=== PATIENT | male | born 1945 | race Caucasian/White ===

== ENCOUNTER 2018-09-13 02:03 | Day surgery (SDC) | payer MEDICARE, OTHER ==
--- NOTE | 2018-09-01 08:59 | EKG ---
FACILITY: [facility] - [place] PATIENT NAME: KIRSTEN WONG : [id number] MR: [id number] V: [id number] EXAM DATE: ORDERING PHYSICIAN: DEJAN ESQUEDA TECHNOLOGIST: NGUYỄN Starkey Reason : PREOP-WRIST Blood Pressure : / mmHG Vent. Rate : 055 BPM Atrial Rate : 055 BPM P-R Int : 190 ms QRS Dur : 086 ms QT Int : 444 ms P-R-T Axes : 037 016 032 degrees QTc Int : 424 ms Sinus bradycardia Otherwise normal ECG When compared with ECG of 05-FEB-2017 21:40, No significant change was found Confirmed by EDWIN JANE ([id number]) on 09/01/2018 12:42:28 PM Referred By: DHEERAJ Confirmed By:EDWIN JANE
[2018-09-13] VITALS (11 sets, daily range): BP systolic 110–151; BP diastolic 80–110
[~2018-09-13] VITALS: Ht 182.9 cm; Wt 113.4 kg
[~2018-09-13 02:03] MED LIST: ACYC-50 PO; ALBU8.5H IH; AMLO-125 PO; ASPI-1441 PO; ATOR20TA22 PO; CEFU500T10 PO; CELE-1 PO; CIT20 PO; CITA-145 PO; CITA-155 PO; DEXL60CA6 PO; ENO30I SC; ENO30I SQ; ESOM40CA42 PO; FLUT16SP19 NS; HYDR2TAB41 PO; MON10 PO; MULT-820 PO; OMEG-11 PO; OMEP-125 PO; OXY10 PO; OXYC-865 PO; PER PO; SILD25TA6 PO; VALS1TAB67 PO; VALS1TAB76 PO; WAR5 PO; ZOLP12.545 PO; [UNRECOGNIZED DRUG - CODE] PO; [UNRECOGNIZED DRUG - CODE] PO
[2018-09-13] MEDS ORDERED: MIDAZOLAM 2 MG/2 ML VIAL IVP PRN (06:00)
[2018-09-13] MEDS ORDERED: ceFAZolin(*) 2GM/D5W 50ML 50 ML IVPB ONE (06:00)
[2018-09-13] MEDS ORDERED: NORMOSOL R SOLN(*) 1000 ML BAG 1,000 ML IV PRN (06:00)
[2018-09-13] MEDS ORDERED: LIDOCAINE/SOD BICARB 8.4% SYR ID ONE (06:00)
[2018-09-13] MEDS ORDERED: CELECOXIB 200 MG CAP PO ONE (06:00)
[2018-09-13] MEDS ORDERED: ROPIVACAINE 0.2% 20 ML VIAL ONE (06:48)
[2018-09-13] MEDS ORDERED: PROPOFOL EMUL(*) 10MG/ML 20 ML 20 ML ONE (07:25)
[2018-09-13] MEDS ORDERED: DEXAMETHASONE SOD 4 MG/ML VIAL ONE ×2 (07:25→07:54)
[2018-09-13] MEDS ORDERED: fentaNYL CITR 100 MCG/2 ML AMP ONE (07:25)
[2018-09-13] MEDS ORDERED: LIDOCAINE MPF 1% 5 ML VIAL ONE (07:25)
[2018-09-13] MEDS ORDERED: ONDANSETRON 4 MG/2 ML VIAL ONE (07:25)
[2018-09-13] MEDS ORDERED: KETAMINE HCL-NS 50 MG/5 ML SYR ONE (07:26)
[2018-09-13] MEDS ORDERED: GLYCOPYRROLATE 0.2MG/ML 1 ML INJ ONE (08:00)
[2018-09-13] MEDS ORDERED: HYDROmorphone HCL 2 MG/ML SDV ONE (09:04)
[2018-09-13] MEDS ORDERED: HYDR-653 PO (09:42)
--- NOTE | 2018-09-13 10:04 | OPERATIVE REPORT 1 ---
EVENT DATE: September 13, 2018 SURGEON: Luther Bhatia MD ANESTHESIOLOGIST: Kalia Stratton MD ANESTHESIA: General LMA anesthesia. 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 PROCEDURE PERFORMED Right wrist proximal row carpectomy with a capitate resurfacing and hemiarthroplasty of the lunate and a radial styloidectomy and neurotomy of the dorsal nerve. FINDINGS The patient had significant arthritic changes associated with his wrist and the proximal arm and was amenable for the lunate hemiarthroplasty. ESTIMATED BLOOD LOSS Minimal as it was done under tourniquet. DRAINS None. COMPLICATIONS None. IMPLANTS Arthrosurface capitate, the largest one with a 15 x 23 x 32. SPECIMENS None. TOURNIQUET TIME About 90 minutes. INDICATIONS AND HISTORY This patient is a 72-year-old male who presented to my clinic for evaluation of right wrist pain and irritation associated with a prior scapholunate disruption and significant arthritic changes associated with the radial styloid joint and well as the lunate aspect and the triquetral aspect. We had talked about the treatment options associated with this and other things we can do associated with it and he said he wanted to go ahead with a proximal row carpectomy and a resurfacing associated with the lunate for hemiarthroplasty. We went over the risk and benefits associated with this and informed consent was obtained. We told him there was no guarantee that is makes him better and he said he understood this. DESCRIPTION OF PROCEDURE As the patient was brought in the operating room, he and the procedure were both verified. He was placed supine on the operative table and induced and intubated by Anesthesia. The right upper extremity was then prepped and draped in the usual fashion and a timout was observed verifying the correct patient and procedure. The standard incision was made over the dorsal aspect of the wrist after inflation of the tourniquet. I was able to then go through the skin and subcutaneous tissue until I got down to the extensor retinaculum. Once I was down to the extensor retinaculum, I then cut this and made it amenable for repair. This was then followed by moving the extensor tendon to the ulnar side and then going through the dorsal capsule of the wrist and cutting through this, directly down onto the lunate. Once I was then able to expose the proximal carpal bones, I was then able to remove the carpal bones in a piecemeal type fashion. Unfortunately, there was significant arthritic changes and adhesions associated with this, so I removed the lunate first and then tried to remove the majority of the scaphoid. Unfortunately, there was a couple of pieces that were imbedded within the tissue on the scaphoid and since this did not articulate with anything, and after we had done the radial styloidectomy, I was able to insure that they were not rubbing anywhere, so they were actually left in place as they did not seem to be posing any threat or issue for the resurfacing. I then went over to the triquetrum and I was able to then remove this en-bloc without any difficulty without any major issues on this side. I then irrigated with copious amounts of saline and removed any other bone fragments and then made sure that we had enough space in order to do the lunate hemiarthroplasty. This was done by drilling a pin straight down the capitate initially and then drilling over the top of this and they putting in the standard screw. Once I had the standard screw in a good position, I then reamed according to the 15 mm reamer and it sized to the largest size resurfacing and so therefore we then put in the dorsal reamer and then was able to put on the trial lunate without any difficulty on top of the capitate. Once I did this, everything moved well with flexion and extension and radial and ulnar deviation. The x-rays looked good, and so therefore this was the final prosthesis chosen. I then irrigated again with copious amounts of saline, removed the radial styloid a little bit more, and then was able to put in the final implant without any difficulty, irritated again and then used the mini C-arm to verify that everything was in excellent position and that there was good motion and use associated with it and everything was spaced out well. I then closed the capsule with a 2-0 FiberWire. This was then followed by 2-0 FiberWire in the extensor retinaculum and then an irrigation again and then a 3-0 Vicryl in the subcutaneous tissue and then a 4-0 Monocryl in the skin. The wound was then anesthetized with Ropivacaine and then dressed with Steri-Strips, gauze 4 x 4s and a soft dressing and the patient was put in a sugar-tong splint and awakened and extubated and transferred to the PACU in stable condition after the tourniquet was let down after about 90 minutes. MARIYA
--- NOTE | 2018-09-13 14:27 | NUR ---
1225 pt orthostatic vs taken as pt has been staying in the 90% with at bed side reminding pt to deep breathe 1230 monitor moved so pt and not seeing numbers and asked to breath normal, pt spo2 drops to 69 % on ra, pt started deep breathing and up in the 90's 1243 pt deep breathing and occ drops into th 80's, continues paradiseobikrystle 1303 pt has been talking with this rn for 15 min and stayed 93%, pt changing on own 1305 pt spo2 checked after changing and was 65% on ra, pt deep breathed and spo2 came up into the 90%'s, continues aerobikrystle 1320 pt walked on ra around preop twice and spot check of spo2 64%, pt states he would like to start the home oxygen process 1325 pt placed on 1L still dropping into 80's when breathing normal so placed on 2l nc, continues aerobikrystle 1325 pt stays at 94% on 2l nc with normal breathing 1330 dr schneider contacted for orders for home oxygen 1340 angella contacted for home oxygen per pt choice, dr schneider and pasha brooks, radha both talked with pt about wearing oxygen for 48 hrs and following up on spo2 reading with either [employer] or pcp. 1415 pt discharged on 2l nc
== END 2018-09-13 10:40 | disposition home or self-care (01) ==
LOC: OR 02:03
PROVIDERS: ATTEND Orthopaedic Surgery
DX: M13.831 Other specified arthritis, right wrist (principal); R00.1 Bradycardia, unspecified; I10 Essential (primary) hypertension; J45.909 Unspecified asthma, uncomplicated; Z79.82 Long term (current) use of aspirin
CPT/HCPCS: 25332; 36415; 93005; 94667; A4565; A9270; C1776; J1100; J1170; J2001; J2250; J2405; J2704; J2795; J3010; J3490; 82040; 82247; 82310; 82374; 82435; 82565; 82947; 84075; 84132; 84155; 84295; 84450; 84460; 84520; J0690